=== PATIENT | female | born 1955 | race Caucasian/White ===

== ENCOUNTER 2018-03-18 19:14 | Emergency (ER) | payer BC ==
[2018-03-18 19:28] VITALS: BP 127/89
[2018-03-18] MEDS ORDERED: Ibuprofen TAB* 600 MG PO ONE (19:32)
--- NOTE | 2018-03-18 19:37 | UC ---
Minor Trauma HPI - HPI Summary HPI Summary: This patient is a 62 year old F presenting to [facility] with a chief complaint of left rib cage pain that began status post fall that occurred at 1000 today. 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 The patient rates the pain 5/10 in severity. Symptoms aggravated by deep inspiration. Symptoms alleviated by nothing. Patient denies SOB. - History of Current Complaint Chief Complaint: UCTrauma Stated Complaint: RIB INJURY Time Seen by Provider: 03/18/18 19:30 Hx Obtained From: Patient ?: No Onset/Duration: Sudden Onset, Lasting Hours, Still Present Onset Of Pain: Immediate Severity Initially: Moderate Severity Currently: Moderate Pain Intensity: 5 Pain Scale Used: 0-10 Numeric Mechanism Of Injury: Fall From A Standing Position Aggravating Factor(s): Deep Breaths Alleviating Factor(s): Nothing - Allergies/Home Medications Allergies/Adverse Reactions: Allergies Allergy/AdvReac Type Severity Reaction Status Date / Time Sulfa (Sulfonamide Allergy Severe Hives Verified 03/18/18 19:28 Antibiotics) Home Medications: Home Medications Ibuprofen/Diphenhydramine Cit [Advil Pm Caplet] 2 tab PO ONCE PRN 03/18/18 [ History Confirmed 03/18/18] PMH/Surg Hx/FS Hx/Imm Hx Previously Healthy: Yes Endocrine History: Other Other Endocrine History: Diabetes Cardiovascular History: Other Other Cardiovascular History: Negative HTN - Surgical History Surgical History: Yes Surgery Procedure, Year, and Place: 02/15 RIGHT ROTATOR CUFF REPAIR [facility] - Family History Known Family History: Positive: Other - Breast CA - Social History Occupation: Employed Full-time Lives: With Family Alcohol Use: Rare Substance Use Type: None Smoking Status (MU): Former Smoker Amount Used/How Often: 4 CIGARETTES PER DAY X 5-6 YEARS When Did the Patient Quit Smoking/Using Tobacco: 30 YEARS AGO - Immunization History Most Recent Tetanus Shot: UNKNOWN Review of Systems Respiratory: Other - Negative SOB Musculoskeletal: Other: - Positive left rib cage pain All Other Systems Reviewed And Are Negative: Yes Physical Exam - Summary Physical Exam Summary: VITAL SIGNS: Reviewed. GENERAL: Patient is a well-developed and nourished female who is lying comfortable in the stretcher. Patient is not in any acute respiratory distress. HEAD AND FACE: Normocephalic EYES: PERRLA, EOMI x 2. EARS: Hearing grossly intact. MOUTH: Oropharynx within normal limits. NECK: Supple, trachea is midline, no adenopathy, no JVD, no carotid bruit. CHEST: Symmetric, no tenderness at palpation LUNGS: Clear to auscultation bilaterally. No wheezing or crackles. CVS: Regular rate and rhythm, S1 and S2 present, no murmurs or gallops appreciated. ABDOMEN: Soft, non-tender. Bowel sounds are normal. No abdominal abnormal pulsations. EXTREMITIES: Full ROM in all major joints, no edema, no cyanosis or clubbing. NEURO: Alert and oriented x 3. No acute neurological deficits. Speech is normal and follows commands. SKIN: Dry and warm Triage Information Reviewed: Yes Vital Signs: Initial Vital Signs Temp 98.6 F 03/18/18 19:24 Pulse 67 03/18/18 19:24 Resp 16 03/18/18 19:24 BP 127/89 03/18/18 19:24 Pulse Ox 97 03/18/18 19:24 Vital Signs Reviewed: Yes Minor Trauma Course/Dx - Course Course Of Treatment: X-ray of the ribs shows to the patient has a 9th fracture. Official report will be read by radiology. Patient was given ibuprofen for pain. Patient was discharged with a prescription for [place] and ibuprofen. Patient will follow with primary care physician in the next couple days. She was advised to return to the urgent care or follow up with the primary care physician or the ER if the symptoms worsen. The patient is hemodynamically stable alert and oriented 3. - Differential Dx/Diagnosis Provider Diagnoses: Ninth rib fracture Discharge - Sign-Out/Discharge Documenting (check all that apply): Patient Departure - Discharge Plan Condition: Stable Disposition: HOME Prescriptions: Hydrocodone/Acetaminophen [[place] 5-325 mg] 1 tab PO Q6H PRN #10 tab MDD 4 PRN Reason: Pain Ibuprofen TAB* [Motrin TAB* 600 MG] 600 mg PO Q8H PRN #30 tab PRN Reason: Pain Patient Education Materials: Rib Fracture (ED) Referrals: Eugenia Dwyer NP [Primary Care Provider] - Additional Instructions: Take medications as instructed and adhere to plan Increase your fluid intake Return to the or go to the emergency department if symptoms worsen Follow-up with primary care physician in next 2-3 days - Billing Disposition and Condition Condition: STABLE Disposition: Home
[2018-03-18] MEDS ORDERED: HYDROcodone/ACETAMIN 5-325 MG* 1 TAB PO ONE (20:09)
--- NOTE | 2018-03-18 20:21 | RAD ---
INDICATION: Left lower rib pain after a fall COMPARISON: None. TECHNIQUE: 5 views of the left ribs were obtained. FINDINGS: An external metallic marker is noted overlying the left lateral 11th rib. On oblique view of the left hemithorax there appears to be a displaced fracture of the lateral left 10th rib. No pneumothorax is apparent. Limited views demonstrate grossly clear lungs. IMPRESSION: There appears to be a displaced fracture at the lateral left 10th rib.
== END 2018-03-18 20:21 | disposition home or self-care (01) ==
LOC: UCEAST 19:14
DX: S22.32XA Fracture of one rib, left side, initial encounter for closed fracture (principal); W18.09XA Striking against other object with subsequent fall, initial encounter; Y93.89 Activity, other specified; Y92.89 Other specified places as the place of occurrence of the external cause; E11.9 Type 2 diabetes mellitus without complications; Z88.2 Allergy status to sulfonamides; Z80.3 Family history of malignant neoplasm of breast; Z87.891 Personal history of nicotine dependence
CPT/HCPCS: 99202; A9270-GY; G0463